=== PATIENT | female | born 1965 | race Caucasian/White ===

== ENCOUNTER 2022-10-21 15:39 | Outpatient (CLI) | payer BC | END 2022-10-21 15:40 | disposition home or self-care (01) | LOC: CSHMAMMO 15:39 | PROVIDERS: ATTEND Obstetrics & Gynecology | DX: Z12.31 Encounter for screening mammogram for malignant neoplasm of breast (principal); Z80.3 Family history of malignant neoplasm of breast; M85.89 Other specified disorders of bone density and structure, multiple sites | CPT/HCPCS: 77063; 77067; 77080 ==